=== PATIENT | male | born 2005 | race Caucasian/White ===

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

== ENCOUNTER 2025-07-24 19:10 | Emergency (ER) | payer MEDICAID, OTHER ==
[~2025-07-24] VITALS: Ht 177.8 cm; Wt 88.5 kg
[~2025-07-24 19:10] MED LIST changes: +HYDR-4277 PO; +ONDA4TAB5 PO; +TRAM50TA2 PO
[2025-07-24 19:29] VITALS: BP 127/95
[2025-07-24] MEDS ORDERED: DEXA4TAB PO (20:02)
[2025-07-24] MEDS ORDERED: ONDA4TAB11 PO (20:02)
[2025-07-24] MEDS ORDERED: DOXY100T2 PO (20:02)
[2025-07-24] MEDS ORDERED: DOXYCYCLINE HYCLATE 100 MG TABLET ONE (20:28)
[2025-07-24] MEDS ORDERED: DEXAMETHASONE SOD PHOSPHATE 4 MG INJ ONE (20:28)
[2025-07-24] MEDS ORDERED: ONDANSETRON ODT 4 MG TAB.RAPDIS ONE (20:29)
[2025-07-24] MEDS: DEXAMETHASONE SOD PHOSPHATE 4 MG INJ IM ONE (20:38)
[2025-07-24] MEDS: ONDANSETRON ODT 4 MG TAB.RAPDIS SL ONE (20:38)
[2025-07-24] MEDS: DOXYCYCLINE HYCLATE 100 MG TABLET PO ONE (20:38)
[2025-07-24 21:00] VITALS: BP 125/90; O2SAT 99
== END 2025-07-24 20:38 | disposition home or self-care (01) ==
LOC: ER 19:30
DX: J04.0 Acute laryngitis (principal); Z79.52 Long term (current) use of systemic steroids; Z88.7 Allergy status to serum and vaccine
CPT/HCPCS: 99283; 96372; J1100; A4606; A4663; Q0162